=== PATIENT | male | born 1985 | race African-American/Black ===

== ENCOUNTER 2020-05-14 17:53 | Emergency (ER) | payer OTHER ==
[~2020-05-14] VITALS: Ht 177.8 cm; Wt 87.0 kg
[2020-05-14] MEDS ORDERED: OXYCODONE HCL/ACETAMINOPHEN 5/325MG TABLET PO ONE ×2 (18:30→21:15)
[2020-05-14] MEDS ORDERED: MORPHINE SULFATE 4 MG/ML CPJ (NOT FOR IM USE) IV ONE (18:30)
[2020-05-14] MEDS ORDERED: FENTANYL CITRATE/PF 50MCG/ML 2ML VIAL IV ONE (19:00)
[2020-05-14 21:37] VITALS: BP 144/86
== END 2020-05-14 22:53 | disposition home or self-care (01) ==
LOC: ER 18:08
DX: S52.122A Displaced fracture of head of left radius, initial encounter for closed fracture (principal); W18.39XA Other fall on same level, initial encounter; Y93.89 Activity, other specified; Y92.89 Other specified places as the place of occurrence of the external cause; Y99.8 Other external cause status
CPT/HCPCS: 29125; 29240; 73030; 73070; 96374; 96375; 99284; J2270; J3010